=== PATIENT | male | born 1995 | race African-American/Black ===

== ENCOUNTER 2018-06-06 14:19 | Emergency (ER) | payer SELFPAY ==
[~2018-06-06] VITALS: Ht 167.6 cm; Wt 65.0 kg
[2018-06-06] MEDS ORDERED: MORPHINE SULFATE 10 MG/ML CPJ IM ONE (16:30)
[2018-06-06] MEDS ORDERED: IBUPROFEN 600MG TABLET PO ONE (16:30)
[2018-06-06 17:18] VITALS: BP 128/76
== END 2018-06-06 18:19 | disposition home or self-care (01) ==
LOC: ER 14:19
DX: S52.591A Other fractures of lower end of right radius, initial encounter for closed fracture (principal); S52.614A Nondisplaced fracture of right ulna styloid process, initial encounter for closed fracture; V43.62XA Car passenger injured in collision with other type car in traffic accident, initial encounter; Y93.89 Activity, other specified; Y92.488 Other paved roadways as the place of occurrence of the external cause
CPT/HCPCS: 29125; 73110; 73130; 96372; 99284; J2270; A4565